=== PATIENT | female | born 1935 | race Caucasian/White ===

== ENCOUNTER → 2020-02-22 14:14 | Outpatient (CLI) | payer MEDICARE, OTHER, SELFPAY ==
[2020-02-22 15:10] LABS: Add Manual Diff / Slide Review NO; Basophils Absolute Auto 100 /uL (0-100); Eosinophils Absolute Auto 200 /uL (0-450); Eosinophils Percent Auto 2.8 % (2-4); Hematocrit 42.5 % (36-46); Hemoglobin 14.9 g/dL (12.0-16.0); Lymphocytes Absolute Auto 1200 /uL (1100-4500); Lymphocytes Percent Auto 21.8 % (25-40); Mean Corpuscular Volume 97.3 fL (80-100); Monocytes Absolute Auto 500 /uL (0-900); Monocytes Percent Auto 9.6 % (3-14); Neutrophils Absolute Auto 3600 /uL (1500-7000); Neutrophils Percent Auto 64.8 % (50-75); Platelet Count 267 X10^3/uL (150-400); Red Blood Cell Count 4.37 X10^6/uL (4.0-5.2); Red Cell Distribution Width 12.4 % (11.6-14.8); White Blood Cell Count 5.6 X10^3/uL (4.5-11.0)
[2020-02-22 15:23] LABS: BUN Creatinine Ratio 21.3 (6-22); Blood Urea Nitrogen 19 mg/dL (7-17); Calcium 9.8 mg/dL (8.4-10.2); Carbon Dioxide 26 mmol/L (22-32); Chloride 102 mmol/L (98-107); Estimated Glomerular Filt Rate > 60.0 mL/min (>60); Glucose 100 mg/dL (80-110); HEMOLYSIS < 15 (0-50); Potassium 4.1 mmol/L (3.4-5.1); Sodium 136 mmol/L (137-145)
[2020-02-22 15:45] LABS: Hemoglobin A1C% w Est Avg Glu 5.4 % (4.0-6.0)
== END ==
PROVIDERS: Referring Provider Orthopaedic Surgery Adult Reconstructive Orthopaedic Surgery; Visit Provider Orthopaedic Surgery Adult Reconstructive Orthopaedic Surgery
DX: Z01.818 Encounter for other preprocedural examination (principal); Z01.812 Encounter for preprocedural laboratory examination; R73.9 Hyperglycemia, unspecified
CPT/HCPCS: 36415; 80048; 83036; 85025; 93005

== ENCOUNTER 2020-03-15 15:00 | Observation (INO) | payer MEDICARE, OTHER, SELFPAY ==
[2020-03-12 09:47] VITALS: BMI 20.5
[2020-03-14] VITALS (16 sets, daily range): BP systolic 100–187; BP diastolic 49–114; PULSE 57–78; RESP 12–20; TEMP 36–36.9; O2SAT 78–99; BMI 20.9
--- NOTE | 2020-03-14 | DI.RAD.S_ITS ---
PROCEDURE: XR HIP W PEL IF DONE RT 2V INDICATIONS: TOTAL HIP ANTERIOR (R) TECHNIQUE: 2 views of the hip were acquired. COMPARISON: None. FINDINGS: Spot fluoroscopic intraoperative images demonstrating expected alignment of right hip arthroplasty. Dictated by: Clyde Padilla M.D. on 03/14/2020 at 17:39 Approved by: Clyde Padilla M.D. on 03/14/2020 at 17:39
--- NOTE | 2020-03-14 | DI.RAD.S_ITS ---
PROCEDURE: XR PELVIS 1-2V INDICATIONS: POST OP TECHNIQUE: Single view(s) of the pelvis acquired. COMPARISON: None. FINDINGS: Bones: No fractures or dislocations. No suspicious bony lesions. Expected postoperative alignment of right hip arthroplasty Soft tissues: Overlying postoperative soft tissue changes. IMPRESSION: Expected postoperative alignment. Dictated by: Clyde Padilla M.D. on 03/14/2020 at 15:49 Approved by: Clyde Padilla M.D. on 03/14/2020 at 15:50
[2020-03-14] MEDS: ACETAMINOPHEN 325 MG TABLET 975 MG PO (10:43)
[2020-03-14] MEDS: CELECOXIB 200 MG CAPSULE 400 MG PO (10:43)
[2020-03-14] MEDS: GABAPENTIN 300 MG CAPSULE PO (10:43)
[2020-03-14] MEDS: LACTATED RINGERS 1,000 ML 42 ML IV ×2 (10:45→12:23)
--- NOTE | 2020-03-14 11:24 | PM.PREOP ---
Pre-operative Note COVID-19 COVID-19 status: Negative Result date/Date tested (Pos, Neg/Pending): 03/12/20 Interval Note History & Physical reviewed/Exam performed by Physician: Yes Changes to H&P: No H&P completed within 30 days and has changed as indicated here:: Plan for anterior R FOZIA. I discussed with the patient that I am in boards collections and that the boards would like her email for follow up and/or surveys. She has declined to share email, states she doesn't check it.
[2020-03-14] MEDS: TRANEXAMIC ACID 1,000 MG VIAL 1000 MG IV (11:32)
[2020-03-14] MEDS: CEFAZOLIN 2 GM/100 ML FROZ.PIGGY IV ×2 (11:32→19:36)
--- NOTE | 2020-03-14 12:15 | SUR.OPER ---
Supine on padded [place] table with bilateral legs secured in padded positioning boots and suspended in positioning spars, operative leg in traction per surgeon. Head on one pillow. Arm on non-operative side secured on padded armboard <90 degrees abduction. Arm on operative side padded and resting across chest then secured with tape over sheet. Padded perineal post in place per surgeon.
[2020-03-14] MEDS: ROPIVACAINE 0.5% PF 5 MG/ML 20ML VIAL 10 ML INJ (12:26)
[2020-03-14] MEDS: ROPIVACAINE 0.5% PF 20ML 60 ML, MORPHINE 4 MG, KETOROLAC 30 MG INJ (12:35)
--- NOTE | 2020-03-14 14:18 | PM.OP.1 ---
Operative Date/Time/Diagnoses Date of procedure: 03/14/20 Time of procedure: 14:18 Pre-op diagnosis: right hip OA Post-op diagnosis: same Procedure & Clinicians Procedure: right anterior FOZIA Same procedure as scheduled: Yes Indications: right hip OA Surgeon: Alvaro Cross Pharmacy Technician Inpatient: Sal Tello Click Yes if Unassisted: No Anesthesia Type: General and Spinal Operative Notes Findings: right hip OA with osteophytes on femoral head and neck Closure Type: primary Specimen(s): none sent Prosthetic devices, grafts, tissues, transplants, or devices: Hemphill and Nephew R3 56 mm cup Hemphill and Nephew 56 x 36 mm acetabular liner Biolox 36 + 0 ceramic head 2x 25 mm screws Hemphill and Nephew Size 8 standard offset anthology stem Estimated Blood Loss (mL): 200 Blood products transfused: none Procedure in detail: Patient was met in the preoperative holding area where the site and side of surgery were marked by . Consent was signed in clinic but was reviewed at bedside preoperatively. I again confirmed the patient that this will not take care of all of her right lower extremity pain and used as some pain that is likely discogenic from her back. That should help with her groin pain. She says the sharp pain that bothers her the most. Patient was then brought back in the operating room were she received a spinal anesthetic. She was then transferred onto the [place] table induced under general anesthesia. The right hip was then prepped and draped in normal sterile fashion. A surgical time-out was performed verifying the site and side of surgery was the name of the patient. A 7 cm incision centered over the tensor fascia muscle was made in line with the axis of the extremity aim towards the fibular head. Incision was made using 10. Blade followed by electrocautery down to the tensor fascia which was then split with a new 10 blade. Allis clamp was placed on the medial leaflet of the tensor fascia and the tensor muscle belly itself was reflected laterally. A Cobra was then placed over the superior neck of the femoral neck. A Meyerding was then placed deep in the wound to retract the rectus femoris medially at this point the return vessels were able the visualize slow electrocautery was used to gain hemostasis when this was complete a 2nd cup was placed over the inferior neck of the femur. An anterior acetabular wall retractor was placed to reflect the rectus out of the field of view a T-shaped capsulotomy was then performed of the capsule. At superior and inferior leaflets were tagged with a FiberWire. These were then released off the femoral neck. Our templated films showed approximately 18 mm long neck cut. The lesser was then palpated and reciprocating saw was used to make a provisional neck cut. The femur was then externally rotated 45? and a corkscrew was used to remove the femoral head. A soft tissue protector sleeve was then introduced into the wound. Acetabular retractor was then replaced and a Cobra was placed over the posterior wall. This allowed good visualization of the acetabulum. The labrum was removed as well as the Ajquez are. We began reaming under fluoroscopic guidance with a 46 Reamer and medialized to the bottom of the cotyloid fossa we then up sized reamers and got good fit with a 55 mm Reamer. A 56 mm 3 hole cup was selected. Fluoroscopy was used to match our inlet and outlet as well as our rotation to our standing templated preop film. The cup was then placed under fluoroscopic guidance in the position. This was then malleted into place under fluoroscopic guidance. Two 25 mm screws were then drilled in place. The 36 by 56 mm polyethylene liner was then malleted into place and found to be flush at the rim. Femoral hook was then placed the femur was then externally rotated to 100? of external rotation and dropped to the floor and abducted. A Reagan retractor was then placed over the medial neck and a bent Hohmann was placed over the greater trochanter the capsule was T'd off the trochanter at this junction. A large retractor curve retractor was then placed into the soft spot created by release of the capsule. We then did a release in the shoulder of the neck greater trochanter junction taking care to leave the short external rotators intact. The canal finer was then used followed by a chili pepper broach followed by up sizing broaches from 1 through 7. A size 7 broach was left in place and trialed with a standard offset neck and a 36+ 0 head. Hip was stable to 120? of external rotation and also at 90? of external rotation and extended to the floor. Fluoroscopic views demonstrated that we did not have quite full canal fill with the size 7 broach. The hip was then dislocated and the size 7 broach was removed and we up sized broach to a size 8 and selected an 8 standard offset stem was our final stem. This was met then malleted into place the trunnion was cleaned and dried and a 36+ 0 by locks ceramic head was malleted onto the trunnion. This was then reduced taken through range of motion found to be stable. Final films were obtained. The capsule was then closed with a running Ethibond the tag suture fiber wires were then removed the wound was thoroughly irrigated with normal saline and a local injection was infiltrated into the capsule and the tensor. The tensor fascia was then closed with a 1. Running Vicryl. A 2 Vicryl was used in running subcutaneous layer to close the fat layer followed by 2 - 0 Vicryl in the subcutaneous layer followed by a running 3 a strata fix. Dermabond was then placed allowed to dry and Aquacel dressing was placed over the top. Complications: none Post-operative Condition: stable Disposition: PACU Plan for aftercare: WBAT RLE, 24 hours IV abx, 6 weeks DVT prophyalxis
[2020-03-14] MEDS: OXYCODONE IR 5 MG TABLET PO (14:38)
--- NOTE | 2020-03-14 16:45 | PC.ADMIT ---
[email or web address] [facility] Admission Note: The patient,Marii Hawthorne,84 y/o, was given written information regarding hospital policies, unit procedures and contact persons. Patient's smoking status: Never smoker. Pt arrived to room 209 at approx 1525. Bedside hand-off given to Logan ZAVALA from BUSINESS CONTINUITY MANAGEMENT DIRECTOR. Oriented to room and call system. Bed alarm on. Pt veralized she will dusty for needs. Supportive spouse at bedside. Vital Signs - 8 hr 03/14/20 10:35 03/14/20 14:20 03/14/20 14:25 Temperature 98.5 F 98.3 F Pulse Rate 78 74 63 Respiratory Rate 20 18 12 Blood Pressure 187/114 H 104/71 111/76 Pulse Oximetry 78 L 96 97 03/14/20 14:30 03/14/20 14:40 03/14/20 14:45 Temperature Pulse Rate 61 64 58 L Respiratory Rate 17 16 13 Blood Pressure 110/78 113/73 123/78 Pulse Oximetry 95 95 96 03/14/20 14:55 03/14/20 15:06 03/14/20 15:17 Temperature 97.3 F L Pulse Rate 57 L 60 57 L Respiratory Rate 15 16 16 Blood Pressure 113/74 115/69 100/70 Pulse Oximetry 95 96 97 03/14/20 15:25 03/14/20 15:50 Temperature 97.9 F 97.6 F Pulse Rate 59 L 59 L Respiratory Rate 16 16 Blood Pressure 105/49 L 110/73 Pulse Oximetry 97
[2020-03-14] MEDS: ONDANSETRON 4 MG/2 ML INJ IV (17:39)
[2020-03-14 17:47] LABS: Add Manual Diff / Slide Review NO; Basophils Absolute Auto 100 /uL (0-100); Basophils Percent Auto 0.5 % (0-2); Eosinophils Absolute Auto 200 /uL (0-450); Eosinophils Percent Auto 1.7 % (2-4); Hematocrit 34.3 % (36-46); Hemoglobin 12.4 g/dL (12.0-16.0); Lymphocytes Absolute Auto 1000 /uL (1100-4500); Lymphocytes Percent Auto 9.4 % (25-40); Mean Corpuscular Hemoglobin 34.8 PG (26-34); Mean Corpuscular Volume 96.7 fL (80-100); Monocytes Absolute Auto 800 /uL (0-900); Monocytes Percent Auto 7.4 % (3-14); Neutrophils Absolute Auto 8400 /uL (1500-7000); Platelet Count 232 X10^3/uL (150-400); Red Blood Cell Count 3.55 X10^6/uL (4.0-5.2); Red Cell Distribution Width 12.6 % (11.6-14.8); White Blood Cell Count 10.4 X10^3/uL (4.5-11.0)
[2020-03-14] MEDS: SODIUM CHLORIDE 0.9% 250 ML 21 ML IV (19:43)
[2020-03-14] MEDS: SODIUM CHLORIDE 0.9% FLUSH 10 ML IV ×2 (19:43→22:27)
[2020-03-14] MEDS: hydrOXYzine pamoate 25 MG CAPSULE PO (22:26)
[2020-03-14] MEDS: ACETAMINOPHEN 325 MG TABLET 650 MG PO (22:26)
[2020-03-14] MEDS: ASPIRIN EC 81 MG TABLET PO (22:27)
[2020-03-14] MEDS: DOCUSATE 100 MG CAPSULE PO (22:27)
[2020-03-15] VITALS: BP 115/76; PULSE 60; RESP 16; TEMP 36.6; O2SAT 97
[2020-03-15] MEDS: CEFAZOLIN 2 GM/100 ML FROZ.PIGGY IV (02:25)
[2020-03-15 06:22] LABS: Hematocrit 34.7 % (36-46); Hemoglobin 12.2 g/dL (12.0-16.0)
[2020-03-15 06:34] VITALS: BP 114/74; PULSE 67; RESP 16; TEMP 36.9; O2SAT 95
[2020-03-15 07:00] VITALS: BP 121/71; PULSE 66; RESP 16; TEMP 37.1; O2SAT 96
--- NOTE | 2020-03-15 07:08 | PM.PN.1 ---
Subjective Subjective Date Patient Seen: 03/15/20 Time Patient Seen: 07:08 Interval history: Patient is now status post right anterior total hip arthroplasty. Doing well overnight. Pain is well controlled. Exam Vital Signs (past 8 hours): - 03/15/20 00:00 03/15/20 06:34 Temperature 97.8 F 98.4 F Pulse Rate 60 67 Respiratory Rate 16 16 Blood Pressure 115/76 114/74 Pulse Oximetry 97 95 Oxygen Delivery Method Room Air Oxygen Flow Rate 0 Narrative Exam Narrative: Neurovascular intact right lower extremity. Right thigh swelling. Bandage is clean dry and intact. Objective Labs Result Diagrams: 03/15/20 06:05 Labs: Laboratory Results - last 24 hr 03/14/20 03/15/20 17:15 06:05 WBC 10.4 RBC 3.55 L Hgb 12.4 12.2 Hct 34.3 L 34.7 L MCV 96.7 MCH 34.8 H MCHC 36.0 RDW 12.6 Plt Count 232 Neut % (Auto) 81.0 H Lymph % (Auto) 9.4 L [place] % (Auto) 7.4 Eos % (Auto) 1.7 L Baso % (Auto) 0.5 Neut # (Auto) 8400 H Lymph # (Auto) 1000 L [place] # (Auto) 800 Eos # (Auto) 200 Baso # (Auto) 100 Assessment & Plan Assessment & Plan narrative: Patient is a 84-year-old female now postop day 1 from a right anterior total hip arthroplasty. Doing well postoperatively. Has not yet worked with physical therapy. - discharge pending PT clearance Time Spent With Patient Time with patient: 15-24 minutes
[2020-03-15] MEDS: ASPIRIN EC 81 MG TABLET PO ×2 (08:43→23:22)
[2020-03-15] MEDS: hydroCHLOROthiazide 25 MG TABLET 12.5 MG PO (08:43)
[2020-03-15] MEDS: DOCUSATE 100 MG CAPSULE PO (08:44)
[2020-03-15] MEDS: ACETAMINOPHEN 325 MG TABLET 650 MG PO ×3 (08:44→23:22)
[2020-03-15] MEDS: SODIUM CHLORIDE 0.9% FLUSH 10 ML IV ×2 (08:45→23:23)
--- NOTE | 2020-03-15 09:22 | CM.DANOTE ---
Discharge Planning/Care Management Advanced directive, confirm from FAMILY Start: 03/14/20 16:45 Freq: Q24H Status: Active Protocol: Document 03/14/20 16:45 AKP (Rec: 03/14/20 16:53 AKP [id number]) Advance Directive, confirm on record Time 16:47 Person contacted spouse Copy received Yes CM Discharge Assessment Start: 03/15/20 09:21 Freq: Status: Active Protocol: Document 03/15/20 09:21 ITV (Rec: 03/15/20 09:22 ITV [id number]) Discharge Planning Assessment Advance Directives? Yes Advance Directives on File No History Provided By Medical Record Prior Living Arrangements House Household Members spouse Review Status In Process Pre-Anesthesia Assessment Start: 03/12/20 09:47 Freq: Status: Active Protocol: Document 03/12/20 09:47 CAB (Rec: 03/12/20 10:47 CAB [id number]) Pre-Anesthesia Assessment Patient Information Reviewed Via Phone Assessment Assessment Completed With Patient H&P Completed Within 30 Days Yes Diagnostic Results BMP/CMP,CBC,EKG Comment Lbs/EKG @ 02/22/20 - COVID- 19 screen @ [facility] per pt -not in system Primary Care Provider Ovi Valderrama Seen Specialist in Last 12 Months Yes Specialist Seen Orthopedist Primary Language [employer] Analyst Developer Required No Height 160.02 cm Weight 52.617 kg Body Mass Index (BMI) 20.5 Hearing Ability Normal Visual Assist Magnifying Glass Dentition Type Teeth, Natural Present Barriers to Learning None Other Aids No Hx Anesthesia Reactions No Hx Family Anesthesia Reaction No Hx Malignant Hyperthermia No Hx Blood Transfusions No Anesthesia Review Requested No alcohol intake current alcohol intake frequency 0-2 drinks per day Smoking Status Never smoker Substance Use Type does not use Pain Present Pain Reported Musculoskeletal Symptoms Abnormal Gait,Difficulty Walking,Joint Pain History of Falling (Recent or History of No ) Patient is completely paralyzed or No completely immobile Mental Status Oriented to own ability Is patient on oxygen? No Does patient have BOWER/SOB No Hx Sleep Apnea No Currently Taking a Beta Malgorzata No Can You Climb a Flight of Stairs Without Yes SOB Hx Chest Pain No Hx SOB No Hx Syncope or Dizziness No Anti-Coagulant Therapy No Has a Crisis Clinician No Cardiac Testing No Hx Pacemaker/ICD No Pacemaker Rep Required? No Cardiac Clearance Received Not Applicable Diet Type At Home Regular dysphagia No Gastrointestinal Symptoms Constipation Urinary Catheter Present No Hx Urinary Self Catheterization No Diabetes No HgbA1C 5.4 Date 02/22/20 Patient No Lactating No Hx Drug Resistant Organism No Presence of External or Internal Medical No Devices Have you had any close contact with No someone diagnosed with COVID-19? Evaluation/Screening for possible COVID- Yes 19 infection completed? Marital Status Lives With spouse Prior Living Arrangements House Number of Floors (Floors) One Floor Support System Spouse Does the Patient Have Assistance After Yes Surgery Patient Discharge Plan Description Return Home Comment Pt advised overnight length of stay per surgeon Additional comment Pt lives on [facility] Feels Safe in Current Environment Yes Been Physically Hurt or Threatened By a No Person in Current Environment Do you have thoughts of harming yourself None or others? Are you currently considering suicide? No Do you have a plan to hurt yourself or No Plan others? Do You Have Any Spiritual Beliefs That No May Affect Your HC Choices? Do You Have Any Cultural Practices That No May Affect Your HC Choices? Comment Joby Who Can We Speak to About Patient's Care Family, friends Identifying Code for Release of Patient Declines to issue Information Health Care Proxy/Next of Kin Scottie () Health Care Proxy Emergency Contact Name Scottie () Emergency Contact Advance Directives? Yes Advance Directives on File No Requested Patient Bring Advanced Yes Directives DOS Power of Mud Boss Yes Power of Mud Boss Name Paz (daughter) Power of Mud Boss PAC Instructions Do not shave/clip surgical site,Durable medical equipment ,Medications to take/avoid, Nasal antibiotic,No ETOH/ petroleum product on skin DOS, NPO,Post-op transportation,Pre -surgical wash,Sensory aids, Sturdy shoes/comfortable clothes,Do not bring valuables and remove jewelry
--- NOTE | 2020-03-15 09:23 | PT.IIE ---
Current Diagnoses Unilateral primary osteoarthritis, right hip (03/14/20) Surgery Performed Operation Date: 03/14/20 11:15 Actual Procedures p Total Hip Arthroplasty/Anterior Approach(Right) - Alvaro Cross MD Surgical History (Last Updated 03/12/20 @ 10:20 by Terri Irene RN) History of bilateral cataract extraction (Acute) History of right oophorectomy (Acute) Hx of appendectomy (Acute) Hx of tonsillectomy (Acute) S/P epidural steroid injection (Acute) Medical History (Last Updated 03/12/20 @ 10:20 by Terri Irene RN) HTN (hypertension) (Acute) Osteoarthritis (Acute) Physical Therapy Inpatient Evaluation/Re-Eval M1 PT/OT-IP Prior Functional Status Start: 03/15/20 12:29 Freq: NEEDED Status: Active Protocol: Document 03/15/20 09:23 AB (Rec: 03/15/20 12:43 AB [id number]) Medical Review Prior Functional Status Medical History Reviewed Yes Communication able to make needs known Mobility and Gait pt stated tht she is independent with all mobilities and ambulation without AD Social History Household Members spouse Living Arrangements House Number of Floors (Floors) One Floor Number of Stairs To Enter/Railing? 2 steps without rails Home Environment Standard Height Toilet,Walk in Shower,Built-In Shower Seat Home Equipment Front Wheel Walker,Straight Cane,Raised Toilet Seat w/ Armrests M2 PT-IP Current Condition Start: 03/15/20 12:29 Freq: NEEDED Status: Active Protocol: Document 03/15/20 09:23 AB (Rec: 03/15/20 12:43 AB [id number]) Physical Therapy Current Condition Current Condition Evaluation Date 03/15/20 Treatment Diagnosis s/p FOZIA anterior approach; difficulty in walking Onset Date 03/14/20 Precautions Anterior Hip Precautions No Hip Extension,No Hip External Rotation Weight Bearing Status Weight Bearing Status Weight Bear as Tolerated Allowed Weight Bearing Amount (enter % RLE WBAT or #) (%) M3 PT-IP Subjective Start: 03/15/20 12:29 Freq: NEEDED Status: Active Protocol: Document 03/15/20 09:23 AB (Rec: 03/15/20 12:43 AB [id number]) Subjective Physical Therapy Visit Type Type Initial Evaluation Visit Start Time 09:23 Visit Stop Time 10:35 Total Visit Minutes 72 Number of MEDIA ASSISTANT Visits 0 Physical Therapy Visit Comments Patient Comments pt is agreeble to do PT; stated that they want to catch the 2pm to [place] Therapy Pain Assessment Pain When Pain Assessed At Rest Pain Present Pain Present Pain Reported Location Right Hip Intensity 4 Scale Used Numeric (0 - 10) Pain Management Techniques Apply Cold,Modification of Treatment,Re-positioning, Timing of Activity with Medications M4 PT-IP Mobility and Gait Start: 03/15/20 12:29 Freq: NEEDED Status: Active Protocol: Document 03/15/20 09:23 AB (Rec: 03/15/20 12:43 AB [id number]) PT-Bed Mobility Assessment Supine to Sit Supine to Sit Standby Assistance PT-Transfer Assessment Sit to and From Stand Sit to and from Stand Standby Assistance Equipment Transfer Assistive Device Gait Belt,Front Wheeled Walker Orthotic/Prosthetic Devices or Brace: No Transfers Transfer Destination Chair Transfer Technique ambulated using FWW Transfer Ability Level of Assist Standby Assistance,Contact Guard Assistance,Use of Upper Extremities Comments Mobility Comments spouse in room with pt. educated on anterior hip precautions. BP: 123/85. pt completed supine to sit SBA. pt was able to sit on EOB SBA. pt without any c/o. pt ambulated in room using FWW ~ 30 ft with initial CGA but after a few feet was able to complete with SBA. educated spouse on how to assist pt. pt agreed to do more ambulation and stair climbing. completed ambulation towards the stairs ~ 100 ft SBA. completed up/down step using SPC and TRACTOR DRIVER requiring mod A and cues. educated spouse on how to assist pt and assisted pt on stairs. pt ambulated back to her room using FWW SBA . pt sat on chair. pt c/o lightheadedness. BP checked: 72/35 on RUE. elevated BLE. BP checked after ~ 2 min: 72/ 46 on RUE. alerted nurse. BP checked on LUE: 87/50. reclined chair and BP checked again after ~ 2 min: 104/56. nurse in room with pt. call light and table placed within reach. Gait Assessment Gait Gait Assistance Required: Standby Assistance,Contact Guard Assist Distance (Feet) 100 Able to Maintain Weight Bearing Status Yes During Gait Assistive Devices Assistive Device Gait Belt,Front Wheeled Walker Orthotic/Prosthetic Devices or Brace: No Gait Deviations General Gait Pattern Antalgic Factors Limiting Gait Function Factors Limiting Gait Function Decreased Activity Tolerance, Decreased Strength,Poor Balance,Poor Safety Awareness Comments Gait Comments ambulated 30+ 100 ft x 2 using FWW initial CGA but afterwards only SBA. Stair Climbing Assessment Evaluation Level of Assist On Stairs Minimal Assistance,Moderate Assistance,1 Person Assistance Devices Stair Climbing Assistive Devices Straight Cane Technique/Endurance Stair Climbing Direction Ascend and Descend Stair Climbing Technique Step to Step Number of Steps Climbed 3 Query Text: Stair Climbing Set # Repetitions (reps) 3 Comments Stair Climbing Comments up/down platform step with SPC and TRACTOR DRIVER min to mod A and cues . educated spouse on how to assist pt and completed up/ down 3 steps x 3 reps using SPC and TRACTOR DRIVER mod A and cues for techniques. PT-Balance Assessment Sitting Balance and Reactions Static Sitting Balance Ability Good Dynamic Sitting Balance Ability Good Standing Balance and Reactions Static Standing Balance Ability Fair Dynamic Standing Balance Ability Fair Device Used FWW M5 PT-IP Objective Assessments Start: 03/15/20 12:29 Freq: NEEDED Status: Active Protocol: Document 03/15/20 09:23 (Rec: 03/15/20 12:43 AB [id number]) Orientation Orientation/Cognition Level of Alertness Alert Orientation Name,Age,Place,Situation Safety Awareness Decreased Safety Awareness Memory Description Short Term Impaired Gross Range of Motion Lower Extremity ROM Assessment Within Functional Limits Strength Lower Extremity Strength Assessment Within Functional Limits Coordination Assessment Gross Coordination Gross Coordination WNL Sensation Assessment Sensation Gross Sensation WNL Muscle Tone Muscle Tone WNL Yes M6 PT-IP Treatment Start: 03/15/20 12:29 Freq: NEEDED Status: Active Protocol: Document 03/15/20 09:23 AB (Rec: 03/15/20 12:43 AB [id number]) Physical Therapy Treatment Exercises Exercises Heel Slides Education Education Provided Precautions,Weight Bearing Status,Post-Op Packet,Safety M7 PT-IP Assessment and Plan Start: 03/15/20 12:29 Freq: NEEDED Status: Active Protocol: Document 03/15/20 09:23 AB (Rec: 03/15/20 12:43 AB [id number]) PT Summary Assessment and Plan Potential Rehabilitation Potential Good Status of Condition at Evaluation Evolving Summary Impairments Pain,ROM,Strength,Balance,Bed Mobility,Transfers,Gait, Activity Tolerance Assessment Summary pt doing well with mobility but with incidence of decrease BP after ambulation. pt plans to go home later today and may go home when medically stable. nurse is aware of low BP during activities. pt stated that she is set up for outpt PT. Goals Bed Mobility Goal Independent Transfer Goal Independent,Front Wheeled Walker Gait Goal Independent,Front Wheel Walker Gait Distance 200 Other Goals up/down 2 steps without rails CGA using SPC/TRACTOR DRIVER Frequency of Treatment Frequency Of Treatment Twice a Day Treatment Plan Physical Therapy Treatment Plan Bed Mobility Training,Transfer Training,Gait Training, Therapeutic Exercise,Balance Retraining,Post Op Education, Discharge Planning,Hot or Cold Pack,Neuromuscular Re-ed, Coordination Retraining,Manual Therapy Recommendations To Nursing Amount of Assist Needed 1 Person Assist Discharge Recommendations PT Discharge Recommendations Home with Assistance, Outpatient PT Transportation Needs at Discharge Private Vehicle
--- NOTE | 2020-03-15 09:25 | CM.DANOTE ---
Addendum entered by Mishel Zamora LPN 03/15/20 13:55: Met with pt as planned. Introduced self and role. Pt has struggled with low blood pressure today during therapy but otherwise has been cleared by PT Laurence for home. Caregiver training was provided to pt's Scottie. Pt says initially they had planned to take the [address] to [place] and that her was now out getting her d/c medication. Her new FWW is in the room. She says now they are planning the 1530 ferry if she is ok to go but she adds that it is fine for us if I need to stay. My will stay here in town. He wouldn't know what to do if I got like this at home RN Regine confirms that she is watching the BP closely and that pt may need to stay on overnight. Will follow. P: pt either will go later today or tomorrow, pending final ok. Will follow prn. Original Note: Discharge Planning/Care Management DCP: assessment: case received, EMR reviewed and a d/c to home order noted: placed early this morning by Dr. Cross as a d/c to home: His progress note states that this will be pending clearance by PT. Pt is an 84 year old female who admitted yesterday for a scheduled surgery: RTHA: anterior approach. Surgeon: Dr. Cross PCP: Ovi Valderrama Payer: Medicare and [employer] Admission status: SDC: per UR LUCAS Lechuga P: discuss in Team Rounds and meet with pt after more is known. She will have her first PT eval sometime this morning. She stated during her phone assessment of 03/12 with CAB: see that template below: that her plan at hospital d/c was for d/c to home with her Scottie giving supportive care. They live on [facility]. Advanced directive, confirm from FAMILY Start: 03/14/20 16:45 Freq: Q24H Status: Active Protocol: Document 03/14/20 16:45 AKP (Rec: 03/14/20 16:53 AKP [id number]) Advance Directive, confirm on record Time 16:47 Person contacted spouse Copy received Yes CM Discharge Assessment Start: 03/15/20 09:21 Freq: Status: Active Protocol: Document 03/15/20 09:21 ITV (Rec: 03/15/20 09:22 ITV [id number]) Discharge Planning Assessment Advance Directives? Yes Advance Directives on File No History Provided By Medical Record Prior Living Arrangements House Household Members spouse Review Status In Process Pre-Anesthesia Assessment Start: 03/12/20 09:47 Freq: Status: Active Protocol: Document 03/12/20 09:47 CAB (Rec: 03/12/20 10:47 CAB [id number]) Pre-Anesthesia Assessment Patient Information Reviewed Via Phone Assessment Assessment Completed With Patient H&P Completed Within 30 Days Yes Diagnostic Results BMP/CMP,CBC,EKG Comment Lbs/EKG @ [facility] 02/22/20 - COVID- 19 screen @ [facility] per pt -not in system Primary Care Provider Ovi Valderrama Seen Specialist in Last 12 Months Yes Specialist Seen Orthopedist Primary Language Armenian Feed Research Technician Required No Height 160.02 cm Weight 52.617 kg Body Mass Index (BMI) 20.5 Hearing Ability Normal Visual Assist Magnifying Glass Dentition Type Teeth, Natural Present Barriers to Learning None Other Aids No Hx Anesthesia Reactions No Hx Family Anesthesia Reaction No Hx Malignant Hyperthermia No Hx Blood Transfusions No Anesthesia Review Requested No alcohol intake current alcohol intake frequency 0-2 drinks per day Smoking Status Never smoker Substance Use Type does not use Pain Present Pain Reported Musculoskeletal Symptoms Abnormal Gait,Difficulty Walking,Joint Pain History of Falling (Recent or History of No ) Patient is completely paralyzed or No completely immobile Mental Status Oriented to own ability Is patient on oxygen? No Does patient have BOWER/SOB No Hx Sleep Apnea No Currently Taking a Beta Malgorzata No Can You Climb a Flight of Stairs Without Yes SOB Hx Chest Pain No Hx SOB No Hx Syncope or Dizziness No Anti-Coagulant Therapy No Has a Fur Cutter No Cardiac Testing No Hx Pacemaker/ICD No Pacemaker Rep Required? No Cardiac Clearance Received Not Applicable Diet Type At Home Regular dysphagia No Gastrointestinal Symptoms Constipation Urinary Catheter Present No Hx Urinary Self Catheterization No Diabetes No HgbA1C 5.4 Date 02/22/20 Patient No Lactating No Hx Drug Resistant Organism No Presence of External or Internal Medical No Devices Have you had any close contact with No someone diagnosed with COVID-19? Evaluation/Screening for possible COVID- Yes 19 infection completed? Marital Status Lives With spouse Prior Living Arrangements House Number of Floors (Floors) One Floor Support System Spouse Does the Patient Have Assistance After Yes Surgery Patient Discharge Plan Description Return Home Comment Pt advised overnight length of stay per surgeon Additional comment Pt lives on [facility] Feels Safe in Current Environment Yes Been Physically Hurt or Threatened By a No Person in Current Environment Do you have thoughts of harming yourself None or others? Are you currently considering suicide? No Do you have a plan to hurt yourself or No Plan others? Do You Have Any Spiritual Beliefs That No May Affect Your HC Choices? Do You Have Any Cultural Practices That No May Affect Your HC Choices? Comment Joby Who Can We Speak to About Patient's Care Family, friends Identifying Code for Release of Patient Declines to issue Information Health Care Proxy/Next of Kin Scottie () Health Care Proxy Emergency Contact Name Scottie () Emergency Contact Advance Directives? Yes Advance Directives on File No Requested Patient Bring Advanced Yes Directives DOS Power of Analytics Analyst Yes Power of Analytics Analyst Name Paz (daughter) Power of Analytics Analyst PAC Instructions Do not shave/clip surgical site,Durable medical equipment ,Medications to take/avoid, Nasal antibiotic,No ETOH/ petroleum product on skin DOS, NPO,Post-op transportation,Pre -surgical wash,Sensory aids, Sturdy shoes/comfortable clothes,Do not bring valuables and remove jewelry
--- NOTE | 2020-03-15 11:47 | PC.NURSE ---
Addendum entered by Regine Fernandez R.N. 03/15/20 14:27: Patient has been voiding fine. Resting and is going to talk to her about the blood pressures being low and when to discharge. Addendum entered by Regine Fernandez R.N. 03/15/20 14:13: Patients blood pressure has improved and she is not having any nausea when she ambulates. She was set to discharge home but states she would like to stay one more night just to be safe as she lives in [place]. Will talk to and let him known. Original Note: Patients dressing to her R.anterior hip is an aquacel that is cdi. Patient is a 1person assist when using the commode. CMS wnl and ppx2Reema Oliva from physical therapy in to see patient and ambulated her in the room. She complained of feeling nauseous, she did not pass out or have any syncopal episodes but her BP did go down to 72/35 and later checked two minutes later and up to 72/46. We then changed arms and took blood pressure again and it was 104/56 and then checked about 15minutes later and up to 106/67. She feels good at this time and is having no problems with hypotension or nausea. If her pressure goes down again after working with therapy, will phone Dr. Cross and let him know. Patient would like to catch the [address] to [facility], if everything goes well for her.
[2020-03-15 12:56] VITALS: BP 148/68; PULSE 68; RESP 17; TEMP 36.8; O2SAT 99
--- NOTE | 2020-03-15 14:41 | PM.PN.1 ---
Exam Vital Signs (past 8 hours): - 03/15/20 07:00 03/15/20 12:56 Temperature 98.7 F 98.2 F Pulse Rate 66 68 Respiratory Rate 16 17 Blood Pressure 121/71 148/68 H Pulse Oximetry 96 99 Oxygen Delivery Method Room Air Oxygen Flow Rate 0 Objective Labs Result Diagrams: 03/15/20 06:05 Labs: Laboratory Results - last 24 hr 03/14/20 03/15/20 17:15 06:05 WBC 10.4 RBC 3.55 L Hgb 12.4 12.2 Hct 34.3 L 34.7 L MCV 96.7 MCH 34.8 H MCHC 36.0 RDW 12.6 Plt Count 232 Neut % (Auto) 81.0 H Lymph % (Auto) 9.4 L Gilchrist % (Auto) 7.4 Eos % (Auto) 1.7 L Baso % (Auto) 0.5 Neut # (Auto) 8400 H Lymph # (Auto) 1000 L Gilchrist # (Auto) 800 Eos # (Auto) 200 Baso # (Auto) 100 Assessment & Plan Assessment & Plan narrative: Patient is pod#1 s/p anterior FOZIA. Patient is being discharged but had episode of hypotension. I will have nurse assist ambulation again for the patient. If patient has recurrent postural hypotension I will plan to keep the patient another day. Patient and her lives in [place] [facility] and uses ferry to get home. I would like to make sure they are stable before discharge to an meadow with difficult access to an ED in case of emergency. I discussed risks and benefits of discharging sooner vs staying another day including exposure to COVID-19. Patient understands.
--- NOTE | 2020-03-15 14:50 | PT.IPTN ---
Current Diagnoses Unilateral primary osteoarthritis, right hip (03/14/20) Surgery Performed Operation Date: 03/14/20 11:15 Actual Procedures p Total Hip Arthroplasty/Anterior Approach(Right) - Alvaro Cross MD Physical Therapy Treatment Note M2 PT-IP Current Condition Start: 03/15/20 12:29 Freq: NEEDED Status: Active Protocol: Document 03/15/20 09:23 AB (Rec: 03/15/20 12:43 AB [id number]) Physical Therapy Current Condition Current Condition Evaluation Date 03/15/20 Treatment Diagnosis s/p FOZIA anterior approach; difficulty in walking Onset Date 03/14/20 Precautions Anterior Hip Precautions No Hip Extension,No Hip External Rotation Weight Bearing Status Weight Bearing Status Weight Bear as Tolerated Allowed Weight Bearing Amount (enter % RLE WBAT or #) (%) M3 PT-IP Subjective Start: 03/15/20 12:29 Freq: NEEDED Status: Active Protocol: Document 03/15/20 14:50 AB (Rec: 03/15/20 17:31 AB [id number]) Subjective Physical Therapy Visit Type Type Treatment Note Visit Start Time 14:50 Visit Stop Time 16:12 Total Visit Minutes 64 Notes split tx session: 1450 to 1500 and 1518 to 1612 Number of VB DEVELOPER Visits 0 Physical Therapy Visit Comments Patient Comments agreeable to do PT. spouse in room with pt Therapy Pain Assessment Pain When Pain Assessed At Rest Pain Present Pain Present Pain Reported Location Right Hip Intensity 4 Scale Used increases to 8/10 with mobility Pain Behaviors Guarding Pain Management Techniques Re-positioning,Timing of Activity with Medications M4 PT-IP Mobility and Gait Start: 03/15/20 12:29 Freq: NEEDED Status: Active Protocol: Document 03/15/20 14:50 AB (Rec: 03/15/20 17:31 AB [id number]) PT-Bed Mobility Assessment Supine to Sit Supine to Sit Moderate Assistance,1 Person Assistance Sit to Supine Sit to Supine Minimal Assistance,1 Person Assistance Scooting Scooting to Edge of Bed Standby Assistance PT-Transfer Assessment Sit to and From Stand Sit to and from Stand Contact Guard Assistance,1 Person Assistance,Use of Upper Extremities Equipment Transfer Assistive Device Gait Belt,Front Wheeled Walker Orthotic/Prosthetic Devices or Brace: No Comments Mobility Comments BP monitored due to orthostasis this morning. BP in supine 139/75. caregiver training conducted. educated spouse on how to assist pt. completed bed mobility supine <>sit 4 reps. spouse was able to assist pt. initially requiring cues from PT and spouse tends to require reminders to cue pt. spouse was able to put safety belt on . BP in sittin/ 92. pt completed sit to stand with spouse assisting and pt was able to stand using FWW for support with spouse assisting. BP with initial standin/ 78. pt with c/o slight lightheadedness but stated that it is ok. BP checked after 2min: 103/83. pt stated that she is still ok and remained standing. checked BP again after 2 min: 98/66. instructed pt to sit down. pt scooted to the HOB. c/o lightheadedness. completed sit to supine with spouse assisting. positioned pt in bed. informed nurse regarding BP. BP checked in supine: 140/77 end of tx session. call light and table placed within reach. Gait Assessment Comments Gait Comments did not complete due to decrease in BP M5 PT-IP Objective Assessments Start: 03/15/20 12:29 Freq: NEEDED Status: Active Protocol: Document 03/15/20 09:23 AB (Rec: 03/15/20 12:43 AB [id number]) Orientation Orientation/Cognition Level of Alertness Alert Orientation Name,Age,Place,Situation Safety Awareness Decreased Safety Awareness Memory Description Short Term Impaired Gross Range of Motion Lower Extremity ROM Assessment Within Functional Limits Strength Lower Extremity Strength Assessment Within Functional Limits Coordination Assessment Gross Coordination Gross Coordination WNL Sensation Assessment Sensation Gross Sensation WNL Muscle Tone Muscle Tone WNL Yes M6 PT-IP Treatment Start: 03/15/20 12:29 Freq: NEEDED Status: Active Protocol: Document 03/15/20 14:50 AB (Rec: 03/15/20 17:31 AB [id number]) Physical Therapy Treatment Education Education Provided Safety M7 PT-IP Assessment and Plan Start: 03/15/20 12:29 Freq: NEEDED Status: Active Protocol: Document 03/15/20 14:50 AB (Rec: 03/15/20 17:31 AB [id number]) PT Summary Assessment and Plan Potential Rehabilitation Potential Good Summary Impairments Pain,ROM,Strength,Balance, Coordination,Sensation,Tone, Cognition,Bed Mobility, Transfers,Gait,Activity Tolerance Progress Towards Goals Slow Progress due to Medical Issues Assessment Summary caregiver training conducted and spouse was able to assist but requires reminders to instruct pt if needed. will continue caregiver training. pt also continues to have decrease in BP with upright activity. will continue to assess progress. Goals Bed Mobility Goal Independent Transfer Goal Independent,Front Wheeled Walker Gait Goal Independent,Front Wheel Walker Gait Distance 200 Other Goals up/down 2 steps without rails CGA using SPC/MANAGER FIBER Days to Meet Goals 5 Frequency of Treatment Frequency Of Treatment Twice a Day Treatment Plan Physical Therapy Treatment Plan Bed Mobility Training,Transfer Training,Gait Training, Therapeutic Exercise,Balance Retraining,Post Op Education, Discharge Planning,Hot or Cold Pack,Neuromuscular Re-ed, Coordination Retraining,Manual Therapy Other Recommendations and Next Treatment caregiver training and stair Focus climbing Recommendations To Nursing Amount of Assist Needed 1 Person Assist Discharge Recommendations PT Discharge Recommendations Home with Assistance, Outpatient PT Transportation Needs at Discharge Private Vehicle
[2020-03-15] MEDS: OXYCODONE IR 5 MG TABLET PO ×2 (15:38→23:21)
[2020-03-15 15:52] VITALS: BP 135/76; PULSE 76; RESP 16; TEMP 36.6; O2SAT 92
--- NOTE | 2020-03-15 16:58 | PC.NURSE ---
discharge note: patient was ready to leave, discussed improved condition w/ . [place] and d/c orders were placed. Pt's IV was d/c, cannula intact. Scant vaginal bleed on peripad was noted and pink tinged urine since 1500. Patient denies dizziness, N/V, light headiness since start of shift. Pain rated 4/10, patient was medicated prior to leaving and given zofran prior to pain meds to avoid vomiting. Patient denies wanting to use wheelchair and was escorted by foot down to personl vehicle along w/ sig. other. Pt. left in stable condition, VSS, and was able to get into personal vehicle unassisted. Belongings in bag and discharge teaching was done. Mult oppurtunities for questions to be asked where given during teaching. No q's or concerns from patient or sig. other.
--- NOTE | 2020-03-15 17:19 | PC.NURSE ---
Call placed to Dr. Rosario regarding d/c orders. Pt was up working with PT. Orthostatics were obtained by Ivania (PT) supine: 135/76, sittin/92, standin/78 post 2 minute weight: 103/83, post another 2 minutes still standin/66. Pain also increased to 8/[address] Rosario was okay with postponing D/C today given ortho vitals and increased pain. Pt is aware and is agreeable to with plan of care at this time.
[2020-03-15 19:53] VITALS: BP 139/76; PULSE 69; RESP 15; TEMP 36.7; O2SAT 95
[2020-03-16 01:45] VITALS: BP 150/77; PULSE 77; RESP 17; TEMP 36.9; O2SAT 97
[2020-03-16 05:20] VITALS: BP 136/80; PULSE 74; RESP 16; TEMP 36.7; O2SAT 96
[2020-03-16] MEDS: OXYCODONE IR 5 MG TABLET PO ×2 (05:31→08:50)
[2020-03-16 07:41] VITALS: BP 128/87; PULSE 68; RESP 18; TEMP 36.6; O2SAT 98
[2020-03-16] MEDS: DOCUSATE 100 MG CAPSULE PO (08:44)
[2020-03-16] MEDS: ASPIRIN EC 81 MG TABLET PO (08:44)
[2020-03-16] MEDS: ACETAMINOPHEN 325 MG TABLET 650 MG PO (08:44)
[2020-03-16] MEDS: polyethylene glycoL 3350 17 GM POWD.PACK PO (08:45)
[2020-03-16] MEDS: SODIUM CHLORIDE 0.9% FLUSH 10 ML IV (08:46)
[2020-03-16] MEDS: hydroCHLOROthiazide 25 MG TABLET 12.5 MG PO (08:46)
--- NOTE | 2020-03-16 08:58 | CM.DPC ---
DCP: continued: Dr. Rosario did cancel the d/c yesterday as low BP issues continued to present a concern. Likely d/c home today with spouse support as planned if stable for same. Will discuss in Team Rounds and follow prn
--- NOTE | 2020-03-16 09:53 | PM.PN.1 ---
Exam Vital Signs (past 8 hours): - 03/16/20 05:20 03/16/20 07:41 Temperature 98.1 F 97.9 F Pulse Rate 74 68 Respiratory Rate 16 18 Blood Pressure 136/80 128/87 Pulse Oximetry 96 98 Oxygen Delivery Method Room Air Oxygen Flow Rate 0 Objective Labs Result Diagrams: 03/15/20 06:05 Assessment & Plan Assessment & Plan narrative: POD#2 s/p anterior FOZIA. Patient is doing well and ready to be discharged. Patient ambulated independently. On exam, patient is neurovascularly intact and w/o s/s of DVT. Will discharge to home today.
--- NOTE | 2020-03-16 10:45 | PT.IPTN ---
Current Diagnoses Unilateral primary osteoarthritis, right hip (03/15/20) Surgery Performed Operation Date: 03/14/20 11:15 Actual Procedures p Total Hip Arthroplasty/Anterior Approach(Right) - Alvaro Cross MD Physical Therapy Treatment Note M2 PT-IP Current Condition Start: 03/15/20 12:29 Freq: NEEDED Status: Active Protocol: Document 03/15/20 09:23 AB (Rec: 03/15/20 12:43 AB [id number]) Physical Therapy Current Condition Current Condition Evaluation Date 03/15/20 Treatment Diagnosis s/p FOZIA anterior approach; difficulty in walking Onset Date 03/14/20 Precautions Anterior Hip Precautions No Hip Extension,No Hip External Rotation Weight Bearing Status Weight Bearing Status Weight Bear as Tolerated Allowed Weight Bearing Amount (enter % RLE WBAT or #) (%) M3 PT-IP Subjective Start: 03/15/20 12:29 Freq: NEEDED Status: Active Protocol: Document 03/16/20 10:40 AW (Rec: 03/16/20 11:16 AW [id number]) Subjective Physical Therapy Visit Type Type Treatment Note Visit Start Time 09:57 Visit Stop Time 10:36 Total Visit Minutes 39 Number of COLOR WORKER Visits 0 Physical Therapy Visit Comments Patient Comments agreeable to do PT. spouse in room with pt Therapy Pain Assessment Pain When Pain Assessed At Rest Pain Present Pain Present Reassessed Location Right Hip Intensity 6 Scale Used Numeric (0 - 10) Pain Behaviors Guarding Pain Management Techniques Apply Cold,Timing of Activity with Medications M4 PT-IP Mobility and Gait Start: 03/15/20 12:29 Freq: NEEDED Status: Active Protocol: Document 03/16/20 10:40 AW (Rec: 03/16/20 11:16 AW [id number]) PT-Bed Mobility Assessment Rolling Type of Rolling Roll to Right Level of Assist Contact Guard Assistance Supine to Sit Supine to Sit Minimal Assistance,2 Person Assistance,Bedrails Scooting Scooting to Edge of Bed Standby Assistance PT-Transfer Assessment Sit to and From Stand Sit to and from Stand Contact Guard Assistance,1 Person Assistance,Use of Upper Extremities Equipment Transfer Assistive Device Gait Belt,Front Wheeled Walker Orthotic/Prosthetic Devices or Brace: No Transfers Transfer Destination Chair Transfer Technique ambulated using FWW Transfer Ability Level of Assist Standby Assistance,Use of Upper Extremities Comments Mobility Comments BP monitored due to orthostasis during treatment yesterday. Supine - 137/84, sitting 168/102, standing 153/ 86. All BP measurements taken after 3 minutes in position. Pt was asymptomatic at beginning of session. She required CGA to roll to her right side for bedpan removal and pericare. She then completed supine to sit from flattened bed by moving her legs to the right side of the bed and required mod A x 1 with hand hold to pull up to sitting. Once sitting, she was able to scoot toward EOB SBA with extra time due to complaint of increased pain. Her , Scottie, then donned the gait belt and provided CGA to stand with FWW. He provided most assist as pt ambulated toward and into the halls, appropriately cueing her to maintain appropriate distance from the walker to her body. Pt ambulated slowly and with limited foot clearance ~100 feet to the stairs and 100 feet back to the room where she transferred to the chair with her assisting. Pt was positioned in the chair with call light and all needs within reach and fresh ice pack applied to the operative site. Pt then complained of feeling faint. BP after activity was 95/61. RN notified. Gait Assessment Gait Gait Assistance Required: Standby Assistance,Contact Guard Assist Distance (Feet) 100 Able to Maintain Weight Bearing Status Yes During Gait Assistive Devices Assistive Device Gait Belt,Front Wheeled Walker Gait Deviations General Gait Pattern Antalgic,Decreased Stride Length,Decreased Feet Clearance,Flexed Trunk,Step-to Gait Factors Limiting Gait Function Factors Limiting Gait Function Decreased Activity Tolerance, Decreased Strength,Poor Balance Comments Gait Comments See mobility comments. Pt's spouse, Scottie, was able to safely provide all necessary assist. Stair Climbing Assessment Evaluation Level of Assist On Stairs Minimal Assistance,1 Person Assistance Devices Stair Climbing Assistive Devices Straight Cane Technique/Endurance Stair Climbing Direction Ascend and Descend Stair Climbing Technique Step to Step Number of Steps Climbed 1 Stair Climbing Set # Repetitions (reps) 4 Comments Stair Climbing Comments Up/down platform step with SPC held in left hand and EQUAL OPPORTUNITY SPECIALIST min A provided by pt's spouse on her right side M5 PT-IP Objective Assessments Start: 03/15/20 12:29 Freq: NEEDED Status: Active Protocol: Document 03/15/20 09:23 AB (Rec: 03/15/20 12:43 AB [id number]) Orientation Orientation/Cognition Level of Alertness Alert Orientation Name,Age,Place,Situation Safety Awareness Decreased Safety Awareness Memory Description Short Term Impaired Gross Range of Motion Lower Extremity ROM Assessment Within Functional Limits Strength Lower Extremity Strength Assessment Within Functional Limits Coordination Assessment Gross Coordination Gross Coordination WNL Sensation Assessment Sensation Gross Sensation WNL Muscle Tone Muscle Tone WNL Yes M6 PT-IP Treatment Start: 03/15/20 12:29 Freq: NEEDED Status: Active Protocol: Document 03/16/20 10:40 AW (Rec: 03/16/20 11:16 AW [id number]) Physical Therapy Treatment Exercises Exercises Ankle Pumps,Gluteal Sets,Heel Slides Education Education Provided Safety Other Treatments Other Treatment Performed Caregiver training with spouse , Scottie. Spouse was able to don and doff gait belt, provide appropriate assist and cues. M7 PT-IP Assessment and Plan Start: 03/15/20 12:29 Freq: NEEDED Status: Active Protocol: Document 03/16/20 10:40 AW (Rec: 03/16/20 11:16 AW [id number]) PT Summary Assessment and Plan Potential Rehabilitation Potential Good Summary Impairments Pain,ROM,Strength,Balance, Cognition,Bed Mobility, Transfers,Gait,Activity Tolerance Progress Towards Goals Slow Progress due to Medical Issues Assessment Summary Pt's spouse provided appropriate cues and assist as pt improved her ability to ambulate with FWW and to navigate stairs. Pt is safe for discharge to home with spouse assist and outpatient PT once medically cleared. Goals Bed Mobility Goal Independent Transfer Goal Independent,Front Wheeled Walker Gait Goal Independent,Front Wheel Walker Gait Distance 200 Other Goals up/down 2 steps without rails CGA using SPC/EQUAL OPPORTUNITY SPECIALIST Days to Meet Goals 5 Frequency of Treatment Frequency Of Treatment Twice a Day Treatment Plan Physical Therapy Treatment Plan Bed Mobility Training,Transfer Training,Gait Training, Therapeutic Exercise,Balance Retraining,Post Op Education, Discharge Planning,Hot or Cold Pack,Neuromuscular Re-ed, Coordination Retraining,Manual Therapy Other Recommendations and Next Treatment caregiver training and stair Focus climbing Recommendations To Nursing Amount of Assist Needed 1 Person Assist Discharge Recommendations PT Discharge Recommendations Home with Assistance, Outpatient PT Transportation Needs at Discharge Private Vehicle
--- NOTE | 2020-03-16 10:59 | PC.NURSE ---
Day shift note: Patient discharge home per Ortho order and cleared by PT. Discharge instructions given to patient, discussed importance of new medication RX, anterior hip precautions, F/U with Ortho, and home safety. Verbalized understanding of instructions. Discharge home via private vehicle accompanied by .
== END 2020-03-16 11:34 | disposition home or self-care (01) ==
LOC: OR 03-16 09:23 → AC 03-16 09:23
PROVIDERS: Admitting Provider Orthopaedic Surgery Orthopaedic Surgery of the Spine; PCP Family Medicine; Referring Provider Orthopaedic Surgery Adult Reconstructive Orthopaedic Surgery; Visit Provider Orthopaedic Surgery Adult Reconstructive Orthopaedic Surgery
PROC: (CPT 27130; principal; 2020-03-14 11:15)
DX: M16.11 Unilateral primary osteoarthritis, right hip (principal); M25.751 Osteophyte, right hip; I10 Essential (primary) hypertension
CPT/HCPCS: 27130; 36415; 72170; 73502; 76000; 85014; 85018; 85025; 97116; 97162; 97530; C1776; G0378; J0690; J1885; J2270; J2274; J2405; J2704; J2795

== ENCOUNTER → 2020-09-19 13:42 | Outpatient (CLI) | payer MEDICARE, OTHER, SELFPAY ==
[2020-09-15 13:40] VITALS: BMI 20.9
--- NOTE | 2020-09-19 13:45 | DI.MRI.S_ITS ---
PROCEDURE: MR CERVICAL SPINE WO CON INDICATIONS: Cervicalgia TECHNIQUE: Noncontrast sagittal T1 spin echo and T2 fast spin echo, sagittal STIR, foraminal oblique sagittal T2 fast spin echo, and axial gradient echo or T2 fast spin echo through the cervical spine. COMPARISON: [facility] [place], CR, XR CERVICAL SPINE 6+ VIEWS, 09/09/2020, 11:04. FINDINGS: Image quality: Excellent. Alignment and Curvature: There is trace retrolisthesis of C3 on C4 C6 on C7, trace anterolisthesis of C4 on C5, C5 on C6. Bone Marrow: Marrow demonstrates normal overall signal. Minimal reactive endplate changes are present at C3-4. Spinal Cord: Visualized spinal cord has normal size and signal. No cerebellar tonsillar herniation. Paraspinous Soft Tissues: No paravertebral masses. Prevertebral soft tissues are normal in thickness. Discs: Moderate to severe desiccation is present throughout the cervical spine. C2-C3: Mild disc bulge without spinal stenosis. Moderate to severe left foraminal narrowing with uncovertebral hypertrophy. C3-C4: Mild disc bulge with minimal spinal stenosis. Severe left and mild right foraminal narrowing with uncovertebral hypertrophy. C4-C5: Mild disc bulge without spinal stenosis. Moderate to severe bilateral foraminal narrowing with uncovertebral hypertrophy. C5-C6: Mild disc bulge with minimal effacement of the anterior thecal sac. Severe left and moderate to severe right foraminal narrowing with uncovertebral hypertrophy. C6-C7: Mild disc bulge without spinal stenosis. Severe left and moderate right foraminal narrowing with uncovertebral hypertrophy. C7-T1: No disc bulge, spinal stenosis or foraminal narrowing. IMPRESSION: 1. 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 2. Minimal spinal stenosis as above. 3. Multilevel disc bulges. Dictated by: Barbi Diehl M.D. on 09/19/2020 at 16:36 Approved by: Barbi Diehl M.D. on 09/19/2020 at 16:38
== END ==
PROVIDERS: PCP Family Medicine; Referring Provider Physical Medicine & Rehabilitation; Visit Provider Physical Medicine & Rehabilitation
DX: M48.02 Spinal stenosis, cervical region (principal); M47.812 Spondylosis without myelopathy or radiculopathy, cervical region; M50.21 Other cervical disc displacement, high cervical region
CPT/HCPCS: 72141